=== PATIENT | female | born 1980 | race African-American/Black ===

== ENCOUNTER 2016-05-05 10:06 | Emergency (ER) | payer OTHER ==
[2016-05-05] MEDS ORDERED: ASPIRIN 81 MG TABLET, CHEWABLE PO ONE (10:12)
--- NOTE | 2016-05-05 10:15 | ER Document Report ---
ED Medical Screen (RME) - General Chief Complaint: Abdominal Pain Stated Complaint: STOMACH PAIN Time seen by provider: 10:10 Mode of Arrival: Ambulatory Information source: Patient Notes: 35 yo female presents to ed for abdominal pain with nausea. Surgery to remove ovaries 2 weeks ago. TRAVEL OUTSIDE OF THE [place] IN LAST 30 DAYS: No - HPI Onset: Other - 3rd day Onset/Duration: Gradual Quality of pain: Sharp, Stabbing Severity: Moderate Pain Level: 4 Associated Symptoms: Abdominal pain, Chest pain, Hurts to breath, Nausea Exacerbated by: Food Relieved by: Denies Similar symptoms previously: Yes Recently seen / treated by doctor: Yes - Related Data Smoking: Non-smoker, Quit greater than 1 year Frequency of alcohol use: None Drug Abuse: None Allergies/Adverse Reactions: Penicillins Allergy (Verified 05/07/12 16:52) VOMITING sulfamethoxazole [From Bactrim] Allergy (Verified 05/05/16 10:10) trimethoprim [From Bactrim] Allergy (Verified 05/05/16 10:10) Past Medical History - Past Medical History Cardiac Medical History: Reports: Hx Atrial Fibrillation - cardioversion Denies: Hx Coronary Artery Disease, Hx Hypertension Past Surgical History: Reports: Hx Section - x 2 - Immunizations Hx Diphtheria, Pertussis, Tetanus Vaccination: No
[2016-05-05 11:29] LABS: APPEARANCE,URINE SLIGHTLY-CLOUDY; BILIRUBIN,URINE NEGATIVE (NEGATIVE); GLUCOSE, URINE NEGATIVE (NEGATIVE); KETONES,URINE NEGATIVE (NEGATIVE); LEUKOCYTE ESTERASE,URINE NEGATIVE (NEGATIVE); NITRITE,URINE NEGATIVE (NEGATIVE); PROTEIN,URINE NEGATIVE (NEGATIVE); URINE SPECIFIC GRAVITY 1.024; UROBILINOGEN,URINE NEGATIVE mg/dL (<2.0)
--- NOTE | 2016-05-05 11:37 | ER Document Report ---
ED General - General Chief Complaint: Abdominal Pain Stated Complaint: STOMACH PAIN Time seen by provider: 11:32 Mode of Arrival: Ambulatory Notes: This is a 35-year-old female with a history of endometriosis and hypothyroidism that presents today with a 4 day history of right upper quadrant pain. She states that she only notices the pain after meals. Occurs 10-15 minutes after eating. Admits to nausea vomiting fever chills. She stated that she took an oral temperature yesterday and got 101. Pain is aggravated with breathing also , she states that the pain will radiate straight through to the back. She states that April 14 she had bilateral oophorectomy, and states that the pain is unrelated. April 2014 she had a hysterectomy. Last bowel movement was yesterday. Pain is sharp and intermittent 8 out of 10. TRAVEL OUTSIDE OF THE [place] IN LAST 30 DAYS: No - Related Data Allergies/Adverse Reactions: Penicillins Allergy (Verified 05/07/12 16:52) VOMITING sulfamethoxazole [From Bactrim] Allergy (Verified 05/05/16 10:10) trimethoprim [From Bactrim] Allergy (Verified 05/05/16 10:10) Past Medical History - General Information source: Patient - Social History Smoking Status: Former Smoker Chew tobacco use (# tins/day): No Frequency of alcohol use: None Drug Abuse: None Family History: Reviewed & Not Pertinent Patient has suicidal ideation: No Patient has homicidal ideation: No - Past Medical History Cardiac Medical History: Reports: Hx Atrial Fibrillation - cardioversion Denies: Hx Coronary Artery Disease, Hx Hypertension Past Surgical History: Reports: Hx Section - x 2 - Immunizations Hx Diphtheria, Pertussis, Tetanus Vaccination: No Review of Systems - Review of Systems Constitutional: denies: Fever - Yesterday she had an oral temperature 101. Today she is not febrile. EENT: No symptoms reported Cardiovascular: denies: Chest pain, Palpitations Respiratory: Hurts to breathe Gastrointestinal: See HPI. denies: Diarrhea - Last bowel movement was yesterday Genitourinary: denies: Burning, Dysuria Female Genitourinary: No symptoms reported Musculoskeletal: No symptoms reported Skin: No symptoms reported Physical Exam - Vital signs Vitals: Temp Pulse Resp BP Pulse Ox 98.1 F 83 18 114/84 99 05/05/16 10:13 05/05/16 10:13 05/05/16 10:13 05/05/16 10:13 05/05/16 10:13 - General General appearance: Appears well - HEENT Head: Normocephalic, Atraumatic Eyes: Normal Conjunctiva: Normal. No: Icteric Cornea: Normal - Respiratory Respiratory status: No respiratory distress Chest status: Nontender Breath sounds: Normal. No: Rales, Rhonchi, Stridor, Wheezing - Cardiovascular Rhythm: Regular Heart sounds: Normal auscultation, S1 appreciated, S2 appreciated - Abdominal Inspection: Normal Bowel sounds: Normal Tenderness: Tender - Right upper quadrant to moderate palpation. Positive Larsen's sign, Larsen's sign - Back Back: Normal. No: CVA tenderness - Extremities General upper extremity: Normal inspection General lower extremity: Normal inspection - Neurological Neuro grossly intact: Yes - Psychological Associated symptoms: Normal affect, Normal mood - Skin Skin Temperature: Warm Skin Moisture: Dry Skin Color: Normal Course - Re-evaluation Re-evalutation: 05/05/16 15:20 Her environmental permitting specialist is Dr. Torre. She stated that she would follow-up with primary care tomorrow.She stated that she understood discharge instructions. Imaging of her abdomen was shared with the patient and her mother. She was given multiple opportunities to ask questions. - Vital Signs Vital signs: Temp Pulse Resp BP Pulse Ox 98.2 F 67 16 110/54 L 100 05/05/16 15:42 05/05/16 15:42 05/05/16 15:42 05/05/16 15:42 05/05/16 15:42 - Laboratory Result Diagrams: 05/05/16 13:48 05/05/16 13:48 Laboratory results interpreted by me: 05/05/16 05/05/16 05/05/16 10:55 13:48 13:48 RBC 5.31 H Hgb 10.9 L Hct 33.7 L MCV 64 L MCH 20.5 L RDW 17.5 H Sodium 145.9 H Glucose 74 L Urine Blood MODERATE H Discharge - Discharge Clinical Impression: Hematuria Abdominal pain Qualifiers: Abdominal location: right upper quadrant Qualified Code(s): R10.11 - Right upper quadrant pain Condition: Stable Disposition: HOME, SELF-CARE Instructions: Abdominal Pain ([facility]) Additional Instructions: Return to the emergency department if symptoms worsen such as fever chills etc. Follow-up with primary care physician as soon as possible. Prescriptions: Ondansetron [Zofran Odt 4 mg Tablet] 1 - 2 tab PO Q4H PRN #15 tab.rapdis PRN Reason: For Nausea/Vomiting Referrals: [facility] [Provider Group] - Follow up as needed
[2016-05-05] MEDS ORDERED: ONDANSETRON 4 MG TAB.RAPDIS PO ONE (11:39)
--- NOTE | 2016-05-05 13:49 | EKG REPORT ---
SEVERITY:- BORDERLINE ECG - SINUS RHYTHM BORDERLINE LEFT AXIS DEVIATION BORDERLINE T ABNORMALITIES, INFERIOR LEADS : Confirmed by: Tania Johnson 05-May-2016 13:49:04
[2016-05-05 14:14] LABS: ABSOLUTE EOSINOPHILS # (AUTO) 0.1 10^3/uL (0.0-0.6); ABSOLUTE LYMPHOCYTES (AUTO) 2.3 10^3/uL (0.5-4.7); ABSOLUTE MONOCYTES (AUTO) 0.4 10^3/uL (0.1-1.4); BASOPHILS % (AUTO) 0.6 % (0-2); EOSINOPHILS % (AUTO) 1.7 % (0-6); HEMATOCRIT 33.7 % (36.0-47.0); HEMOGLOBIN 10.9 g/dL (12.0-15.5); LYMPHOCYTES % (AUTO) 29.2 % (13-45); MEAN CORPUSCULAR HEMOGLOBIN 20.5 pg (27.0-33.4); MEAN CORPUSCULAR HGB CONC 32.3 g/dL (32.0-36.0); MONOCYTES % (AUTO) 4.9 % (3-13); RED BLOOD COUNT 5.31 10^6/uL (3.72-5.28); RED CELL DISTRIBUTION WIDTH 17.5 % (11.5-14.0); SEGMENTED NEUTROPHILS % (AUTO) 63.6 % (42-78); WHITE BLOOD COUNT 7.9 10^3/uL (4.0-10.5)
[2016-05-05 14:31] LABS: ALANINE AMINOTRANSFERASE 33 U/L (9-52); ALBUMIN 3.5 g/dL (3.5-5.0); ALKALINE PHOSPHATASE 80 U/L (38-126); ANION GAP 13 (5-19); ASPARTATE AMINO TRANSFERASE 23 U/L (14-36); BILIRUBIN,TOTAL 0.4 mg/dL (0.2-1.3); BLOOD UREA NITROGEN 14 mg/dL (7-20); CALCIUM 9.4 mg/dL (8.4-10.2); CARBON DIOXIDE 27 mmol/L (22-30); CHLORIDE 106 mmol/L (98-107); CREATINE KINASE 76 U/L (30-135); CREATININE RESULT 0.61 mg/dL (0.52-1.25); GLUCOSE 74 mg/dL (75-110); LIPASE 166.8 U/L (23-300); MAGNESIUM 1.9 mg/dL (1.6-2.3); SODIUM 145.9 mmol/L (137-145); TOTAL PROTEIN 7.7 g/dL (6.3-8.2)
[2016-05-05 14:34] LABS: MEAN CORPUSCULAR VOLUME 64 fl (80-97)
[2016-05-05 14:43] LABS: CREATINE KINASE MB < 0.22 ng/mL (<4.55); TROPONIN I < 0.012 ng/mL
[2016-05-05] MEDS ORDERED: HYDROCODONE/ACETAMINOPHEN 5-325 MG 6 TAB/DSPK PO PRN (15:22)
[2016-05-05 15:48] VITALS: BP 110/54
[2016-05-09 11:39] LABS: PATH REVIEW PATHOLOGIST REVIEWED
== END 2016-05-05 15:44 | disposition home or self-care (01) ==
LOC: ER 10:06
DX: R10.11 Right upper quadrant pain (principal); R31.9 Hematuria, unspecified; R11.2 Nausea with vomiting, unspecified; R07.1 Chest pain on breathing; R68.83 Chills (without fever); Z90.79 Acquired absence of other genital organ(s); Z90.710 Acquired absence of both cervix and uterus; Z87.42 Personal history of other diseases of the female genital tract; Z88.0 Allergy status to penicillin; Z88.1 Allergy status to other antibiotic agents; Z87.891 Personal history of nicotine dependence
CPT/HCPCS: 93005; 99284; 36415; 82553; 82550; 83690; 83735; 84703; 85025; 80053; 81001; 84484; 71020; 76700; 93010; S0119

== ENCOUNTER 2017-11-04 12:33 | Emergency (ER) | payer OTHER ==
[2017-11-04 12:45] VITALS: BP 115/65
--- NOTE | 2017-11-04 12:55 | ER Document Report ---
HPI - HPI Patient complains to provider of: left arm insect bite Onset: Other - 2 days Pain Level: 3 Context: 37 yo female bitten by insect left dorsal foarearm 2 days ago, getting red and more panful. No fever. Associated Symptoms: None Exacerbated by: Denies Relieved by: Denies - ROS ROS below otherwise negative: Yes Systems Reviewed and Negative: Yes All other systems reviewed and negative - REPRODUCTIVE Reproductive: DENIES: : Past Medical History - General Information source: Patient - Social History Smoking Status: Current Every Day Smoker Frequency of alcohol use: None Drug Abuse: None Lives with: Family Family History: Reviewed & Not Pertinent - Past Medical History Cardiac Medical History: Reports: Hx Atrial Fibrillation - cardioversion Past Surgical History: Reports: Hx Section - x 2 - Immunizations Hx Diphtheria, Pertussis, Tetanus Vaccination: No Vertical Provider Document - CONSTITUTIONAL Agree With Documented VS: Yes Exam Limitations: No Limitations General Appearance: No Apparent Distress - INFECTION CONTROL TRAVEL OUTSIDE OF THE [place] IN LAST 30 DAYS: No - MUSCULOSKELETAL/EXTREMETIES Musculoskeletal/Extremeties: MAEW, FROM, Tender - 1 cm inflamed tender bite dorsal left forearm, no lymphangitis - NEURO Level of Consciousness: Alert Motor/Sensory: No Motor Deficit, No Sensory Deficit Course - Vital Signs Vital signs: Temp Pulse Resp BP Pulse Ox 98.0 F 63 14 115/65 100 11/04/17 12:43 11/04/17 12:43 11/04/17 12:43 11/04/17 12:43 11/04/17 12:43 Discharge - Discharge Clinical Impression: Infected insect bite Qualifiers: Encounter type: initial encounter Qualified Code(s): W57.XXXA - Bitten or stung by nonvenomous insect and other nonvenomous arthropods, initial encounter Condition: Good Disposition: HOME, SELF-CARE Instructions: Clindamycin ([facility]), Insect Bites ([facility]), Swollen Insect Bite or Sting ([facility]) Additional Instructions: Elevate above your heart Warm compress Antibiotics Return to the emergency room if worse Prescriptions: Ibuprofen [Motrin 800 mg Tablet] 800 mg PO Q8HP PRN #30 tablet PRN Reason: Clindamycin HCl [Cleocin 150 mg Capsule] 300 mg PO TID #42 capsule Forms: Return to Work Referrals: ARIANA LYONS DO [Primary Care Provider] - Follow up as needed
== END 2017-11-04 13:35 | disposition home or self-care (01) ==
LOC: ER 12:33
DX: S50.862A Insect bite (nonvenomous) of left forearm, initial encounter (principal); W57.XXXA Bitten or stung by nonvenomous insect and other nonvenomous arthropods, initial encounter; F17.200 Nicotine dependence, unspecified, uncomplicated; I48.91 Unspecified atrial fibrillation
CPT/HCPCS: 99281